=== PATIENT | female | born 1960 | race Caucasian/White ===

== ENCOUNTER 2017-04-18 10:55 | Emergency (ER) | payer MEDICARE, MEDICAID ==
[~2017-04-18] VITALS: Ht 170.2 cm; Wt 81.8 kg
[~2017-04-18 10:55] MED LIST: IBUP1CAP11 PO; OMEP20CA4 PO; OMEP40CA37 PO; ONDA4TAB12 PO; ONDA4TAB6 PO; OXYC-145 PO; PROC5TAB56 PO; RANI150T12 PO; SUCR1ORA2 PO
[2017-04-18] MEDS ORDERED: ondansetron/PF 4mg/2ml inj IV ONE ×2 (11:10)
[2017-04-18] MEDS ORDERED: normal saline 1000ML IV soln IVB ONE (11:10)
[2017-04-18 11:45] LABS: BASOPHILS % (AUTO) 0.3 % (0-1); EOSINOPHILS # (AUTO) 0.2 X10'3 (0-0.9); EOSINOPHILS % (AUTO) 3.3 % (0-6); HEMATOCRIT 42.4 % (35.0-45.0); HEMOGLOBIN 14.4 g/dl (12.0-16.0); LYMPHOCYTES # (AUTO) 1.6 X10'3 (1.1-4.8); LYMPHOCYTES % (AUTO) 22.3 % (21-51); MEAN CORPUSCULAR HEMOGLOBIN 30.8 PG (27.0-31.0); MEAN CORPUSCULAR HGB CONC 33.9 % (33.0-36.5); MEAN CORPUSCULAR VOLUME 90.8 FL (78-98); MEAN PLATELET VOLUME 8.1 FL (7.4-10.4); MONOCYTES # (AUTO) 0.6 X10'3 (0-0.9); MONOCYTES % (AUTO) 7.9 % (2-12); NEUTROPHILS # (AUTO) 4.7 X10'3 (1.8-7.7); NEUTROPHILS % (AUTO) 66.2 % (42-75); PLATELET COUNT 200 X10'3 (140-440); RED BLOOD COUNT 4.67 X10'6 (4.20-5.60); RED CELL DISTRIBUTION WIDTH 13.7 % (11.5-14.5); WHITE BLOOD COUNT 7.1 X10'3 (4.5-11.0)
[2017-04-18 11:52] LABS: CLARITY,URINE Clear (Clear); COLOR,URINE Yellow (Yellow); GLUCOSE, URINE Negative (Neg); KETONES,URINE Negative (Neg); LEUKOCYTE ESTERASE ,URINE Trace (Neg); NITRITES, URINE Negative (Neg); OCCULT BLOOD,URINE Negative (Neg); PH,URINE 5.5 (4.8-8.0); PROTEIN,URINE Negative (Neg); UROBILINOGEN,URINE 0.2 E.U/dL (0.2-1.0)
[2017-04-18 12:00] LABS: URINE AMPHETAMINE SCREEN NEGATIVE (Neg); URINE BARBITUATE SCREEN NEGATIVE (Neg); URINE BENZODIAZEPINES SCREEN NEGATIVE (Neg); URINE CANNABINOID SCREEN POSITIVE (Neg); URINE COCAINE SCREEN NEGATIVE (Neg); URINE METHADONE SCREEN NEGATIVE (Neg); URINE OPIATE SCREEN NEGATIVE (Neg); URINE PHENCYCLIDINE SCREEN NEGATIVE (Neg)
[2017-04-18 12:01] LABS: ALANINE AMINOTRANSFERASE 55 U/L (12-78); ALBUMIN 3.7 G/DL (3.4-5.0); ALBUMIN/GLOBULIN RATIO 0.8 (1.1-1.5); ALKALINE PHOSPHATASE 124 IU/L (46-116); ANION GAP 9 (8-16); ASPARTATE AMINO TRANSFERASE 56 U/L (10-37); BILIRUBIN,TOTAL 0.7 MG/DL (0.1-1.0); BLOOD UREA NITROGEN 15 MG/DL (7-18); BUN/CREATININE RATIO 18.8 (6.6-38.0); CHLORIDE 104 MMOL/L (99-107); CHOL/HDL RATIO 2.4 (0.00-4.99); CHOLESTEROL 209 MG/DL (0-200); ETHANOL < 0.010 GM/DL (0.0-0.010); GLUCOSE 109 MG/DL (70-104); HDL CHOLESTEROL 86 MG/DL (35-60); LDL CHOLESTEROL 119 MG/DL (50-100); LIPASE 134 U/L (73-393); POTASSIUM 4.2 MMOL/L (3.5-5.1); SODIUM 137 MMOL/L (135-145); TOTAL CARBON DIOXIDE 24.3 MMOL/L (24-32); TOTAL PROTEIN 8.1 G/DL (6.4-8.2); TRIGLYCERIDES 70 MG/DL (20-135); eGFR 74 ML/MIN
[2017-04-18 12:02] LABS: UA COLLECTION TYPE CLN CATCH MIDSTREAM
[2017-04-18 12:03] LABS: BACTERIA,URINE 1+ /HPF (Neg); MUCUS STRANDS FEW /LPF (Neg); RBC,URINE NONE SEEN /HPF (0-2); SQUAMOUS EPITHELIAL CELL,UR FEW /LPF (FEW); WBC,URINE 0-4 /HPF (0-4)
[2017-04-18 12:04] LABS: TRANSITIONAL EPI CELLS,URINE FEW /HPF
[2017-04-18 12:47] VITALS: BP 170/50
== END 2017-04-18 12:49 | disposition home or self-care (01) ==
LOC: ER 10:56
DX: K52.9 Noninfective gastroenteritis and colitis, unspecified (principal); G89.29 Other chronic pain; Z90.49 Acquired absence of other specified parts of digestive tract; Z79.899 Other long term (current) drug therapy; Z88.8 Allergy status to other drugs, medicaments and biological substances
CPT/HCPCS: 36415; 74176; 80053; 80061; 80305; 80320; 81001; 83690; 85025; 87077; 87088; 87186; 96361; 96374; 96375; 99285; J2270; J2405; J7030

== ENCOUNTER 2017-04-18 14:42 | Emergency (ER) | payer MEDICARE, MEDICAID ==
[~2017-04-18] VITALS: Ht 170.2 cm; Wt 85.3 kg
[2017-04-18 15:41] VITALS: BP 124/85
== END 2017-04-18 19:32 | disposition left against medical advice (07) ==
LOC: ER 14:42
DX: R10.12 Left upper quadrant pain (principal); R11.2 Nausea with vomiting, unspecified; R19.7 Diarrhea, unspecified; Z53.21 Procedure and treatment not carried out due to patient leaving prior to being seen by health care provider
CPT/HCPCS: J7030

== ENCOUNTER 2017-07-04 12:20 | Emergency (ER) | payer MEDICARE, MEDICAID ==
[~2017-07-04] VITALS: Ht 162.6 cm; Wt 81.8 kg
[2017-07-04 12:48] LABS: CLARITY,URINE CLEAR (Clear); COLOR,URINE YELLOW (Yellow); GLUCOSE, URINE NEGATIVE (Neg); KETONES,URINE NEGATIVE (Neg); LEUKOCYTE ESTERASE ,URINE TRACE (Neg); NITRITES, URINE NEGATIVE (Neg); OCCULT BLOOD,URINE NEGATIVE (Neg); PROTEIN,URINE NEGATIVE (Neg); UROBILINOGEN,URINE 0.2 E.U/dL (0.2-1.0)
[2017-07-04 12:48] LABS: BASOPHILS % (AUTO) 0.3 % (0-1); EOSINOPHILS # (AUTO) 0.2 X10'3 (0-0.9); EOSINOPHILS % (AUTO) 1.9 % (0-6); HEMATOCRIT 42.4 % (35.0-45.0); HEMOGLOBIN 14.5 g/dl (12.0-16.0); LYMPHOCYTES # (AUTO) 2.2 X10'3 (1.1-4.8); LYMPHOCYTES % (AUTO) 20.8 % (21-51); MEAN CORPUSCULAR HEMOGLOBIN 31.3 PG (27.0-31.0); MEAN CORPUSCULAR HGB CONC 34.2 % (33.0-36.5); MEAN CORPUSCULAR VOLUME 91.7 FL (78-98); MEAN PLATELET VOLUME 9.9 FL (7.4-10.4); MONOCYTES # (AUTO) 0.8 X10'3 (0-0.9); MONOCYTES % (AUTO) 7.5 % (2-12); NEUTROPHILS # (AUTO) 7.3 X10'3 (1.8-7.7); NEUTROPHILS % (AUTO) 69.5 % (42-75); PLATELET COUNT 192 X10'3 (140-440); RED BLOOD COUNT 4.63 X10'6 (4.20-5.60); RED CELL DISTRIBUTION WIDTH 13.5 % (11.5-14.5); WHITE BLOOD COUNT 10.4 X10'3 (4.5-11.0)
[2017-07-04 13:00] LABS: UA COLLECTION TYPE CLN CATCH MIDSTREAM
[2017-07-04 13:01] LABS: BACTERIA,URINE FEW /HPF (Neg); MUCUS STRANDS NONE SEEN /LPF (Neg); RBC,URINE NONE SEEN /HPF (0-2); SQUAMOUS EPITHELIAL CELL,UR FEW /LPF (FEW); WBC,URINE 0-4 /HPF (0-4)
[2017-07-04 13:02] LABS: URINE AMPHETAMINE SCREEN NEGATIVE (Neg); URINE BARBITUATE SCREEN NEGATIVE (Neg); URINE BENZODIAZEPINES SCREEN NEGATIVE (Neg); URINE CANNABINOID SCREEN POSITIVE (Neg); URINE COCAINE SCREEN NEGATIVE (Neg); URINE METHADONE SCREEN NEGATIVE (Neg); URINE OPIATE SCREEN NEGATIVE (Neg); URINE PHENCYCLIDINE SCREEN NEGATIVE (Neg)
[2017-07-04 13:11] LABS: ALANINE AMINOTRANSFERASE 86 U/L (12-78); ALBUMIN 3.7 G/DL (3.4-5.0); ALBUMIN/GLOBULIN RATIO 0.9 (1.1-1.5); ALKALINE PHOSPHATASE 77 IU/L (46-116); ANION GAP 14 (8-16); ASPARTATE AMINO TRANSFERASE 43 U/L (10-37); BILIRUBIN,TOTAL 0.7 MG/DL (0.1-1.0); BLOOD UREA NITROGEN 13 MG/DL (7-18); BUN/CREATININE RATIO 15.1 (6.6-38.0); CALCIUM 8.6 MG/DL (8.5-10.1); CHLORIDE 100 MMOL/L (99-107); CREATININE 0.86 MG/DL (0.40-0.90); ETHANOL < 0.010 GM/DL (0.0-0.010); GLUCOSE 109 MG/DL (70-104); POTASSIUM 3.2 MMOL/L (3.5-5.1); SODIUM 136 MMOL/L (135-145); TOTAL CARBON DIOXIDE 21.7 MMOL/L (24-32); TOTAL PROTEIN 7.8 G/DL (6.4-8.2); eGFR 68 ML/MIN
[2017-07-04] MEDS ORDERED: PALI6TAB PO (13:17)
[2017-07-04] MEDS ORDERED: SOMINEX (13:17)
[2017-07-04] MEDS ORDERED: PROP10TA10 PO (13:17)
[2017-07-04] MEDS ORDERED: OMEP20TA5 PO (13:17)
[2017-07-04] MEDS ORDERED: LORA1TAB PO (13:17)
[2017-07-04] MEDS ORDERED: LAMO100T65 PO (13:17)
[2017-07-04] MEDS ORDERED: LURA20TA PO (13:17)
[2017-07-04] MEDS ORDERED: NORT25CA PO (13:17)
[2017-07-04] MEDS ORDERED: SOMINEX PO (13:17)
[2017-07-04] MEDS ORDERED: potassium Cl 20 mEq SR tablet PO STA (13:50)
[2017-07-04] MEDS ORDERED: PROP40TA72 PO (14:00)
[2017-07-04] MEDS ORDERED: DIPH25CA6 PO (14:04)
[2017-07-04 17:35] LABS: URINE HCG NEGATIVE (NEG)
[2017-07-04] MEDS: lurasidone 20mg tablet PO SCH (21:17)
[2017-07-04] MEDS: pantoprazole 40mg Tablet.DR PO SCH (21:17)
[2017-07-04] MEDS: PALIPERIDONE 3 MG TAB.ER.24 PO SCH (21:17)
[2017-07-04] MEDS: lamoTRIgine 100mg tablet PO SCH (21:17)
[2017-07-04] MEDS: propranolol 10mg tablet PO SCH (21:17)
[2017-07-04] MEDS: LORazepam 1 MG tablet PO PRN (21:18)
[2017-07-04] MEDS: diphenhydrAMINE 25mg capsule PO SCH (21:18)
[2017-07-04] MEDS: ibuprofen 200mg tablet PO PRN (21:18)
[2017-07-05] MEDS ORDERED: acetaminophen 325mg tablet PO ONE (07:50)
[2017-07-05] MEDS ORDERED: lurasidone 20mg tablet PO SCH (08:00)
[2017-07-05] MEDS: propranolol 10mg tablet PO SCH ×2 (08:28→20:17)
[2017-07-05] MEDS: pantoprazole 40mg Tablet.DR PO SCH ×2 (08:28→20:18)
[2017-07-05] MEDS ORDERED: tuberculin, purif. prot. deriv. 5 units/0.1ml ID ONE (11:10)
[2017-07-05] MEDS: nortriptyline 25mg capsule PO SCH (11:19)
[2017-07-05] MEDS: PALIPERIDONE 3 MG TAB.ER.24 PO SCH (20:17)
[2017-07-05] MEDS: diphenhydrAMINE 25mg capsule PO SCH (20:17)
[2017-07-05] MEDS: lurasidone 20mg tablet PO SCH (20:17)
[2017-07-05] MEDS: lamoTRIgine 100mg tablet PO SCH (20:17)
[2017-07-05] MEDS: LORazepam 1 MG tablet PO PRN (20:18)
[2017-07-06] MEDS: propranolol 10mg tablet PO SCH ×2 (08:46→20:22)
[2017-07-06] MEDS: nortriptyline 25mg capsule PO SCH (08:46)
[2017-07-06] MEDS: pantoprazole 40mg Tablet.DR PO SCH ×2 (08:46→20:09)
[2017-07-06] MEDS: LORazepam 1 MG tablet PO PRN ×2 (10:04→20:08)
[2017-07-06] MEDS ORDERED: LORazepam 1 MG tablet PO ONE (15:35)
[2017-07-06] MEDS: ibuprofen 200mg tablet PO PRN (20:07)
[2017-07-06] MEDS: PALIPERIDONE 3 MG TAB.ER.24 PO SCH (20:07)
[2017-07-06] MEDS: diphenhydrAMINE 25mg capsule PO SCH (20:08)
[2017-07-06] MEDS: lamoTRIgine 100mg tablet PO SCH (20:08)
[2017-07-06] MEDS: lurasidone 20mg tablet PO SCH (20:08)
[2017-07-06] MEDS ORDERED: benztropine 1 mg/ml 2ml ampule IM STA (20:16)
[2017-07-07] MEDS ORDERED: traZODone 50mg tablet PO ONE (01:05)
[2017-07-07 06:05] VITALS: BP 100/56
[2017-07-07] MEDS: propranolol 10mg tablet PO SCH (07:35)
[2017-07-07] MEDS: pantoprazole 40mg Tablet.DR PO SCH (07:35)
[2017-07-07] MEDS: nortriptyline 25mg capsule PO SCH (07:39)
[2017-07-07] MEDS ORDERED: benztropine 1mg tablet PO SCH (08:00)
== END 2017-07-07 15:00 | disposition home or self-care (01) ==
LOC: ER 12:20
DX: R45.851 Suicidal ideations (principal); E87.6 Hypokalemia; F12.10 Cannabis abuse, uncomplicated; F25.9 Schizoaffective disorder, unspecified; G89.29 Other chronic pain; F31.9 Bipolar disorder, unspecified; F20.9 Schizophrenia, unspecified; Z90.49 Acquired absence of other specified parts of digestive tract; Z88.8 Allergy status to other drugs, medicaments and biological substances; Z79.899 Other long term (current) drug therapy
CPT/HCPCS: 36415; 80053; 80305; 80320; 81001; 81025; 84443; 85025; 87088; 96372; 99284; J0515; Q0163

== ENCOUNTER 2017-07-07 11:58 | Inpatient (IN) | payer MEDICARE, MEDICAID ==
[~2017-07-07] VITALS: Ht 170.2 cm; Wt 82.2 kg
[~2017-07-07 11:58] MED LIST changes: +DIPH25CA6 PO; +LAMO100T65 PO; +LORA1TAB PO; +LURA20TA PO; +NORT25CA PO; -OMEP20CA4 PO; +OMEP20TA5 PO; -OMEP40CA37 PO; -ONDA4TAB12 PO; -ONDA4TAB6 PO; -OXYC-145 PO; +PALI6TAB PO; -PROC5TAB56 PO; +PROP40TA72 PO; -RANI150T12 PO; -SUCR1ORA2 PO
[2017-07-07] MEDS: LORazepam 1 MG tablet PO PRN (15:38)
[2017-07-07] MEDS: nicotine prolacrilex 2mg gum BC PRN ×2 (15:43→20:19)
[2017-07-07 19:21] VITALS: BP 107/67
[2017-07-07] MEDS: propranolol 10mg tablet PO SCH (20:10)
[2017-07-07] MEDS: diphenhydrAMINE 25mg capsule PO SCH (20:11)
[2017-07-07] MEDS: PALIPERIDONE PO SCH (20:11)
[2017-07-07] MEDS: diphenhydrAMINE 25mg capsule PO PRN (20:19)
[2017-07-07] MEDS: [UNRECOGNIZED DRUG - REMARK] PO SCH (20:40)
[2017-07-07] MEDS ORDERED: lamoTRIgine 100mg tablet PO SCH (21:00)
[2017-07-08 07:04] LABS: CHOL/HDL RATIO 3.1 (0.00-4.99); CHOLESTEROL 162 MG/DL (0-200); HDL CHOLESTEROL 52 MG/DL (35-60); LDL CHOLESTEROL 93 MG/DL (50-100); TRIGLYCERIDES 71 MG/DL (20-135)
[2017-07-08 07:08] LABS: HEMOGLOBIN A1C 5.3 % (4.5-6.2)
[2017-07-08] MEDS: nicotine prolacrilex 2mg gum BC PRN (07:13)
[2017-07-08] MEDS: pantoprazole 40mg Tablet.DR PO SCH (07:13)
[2017-07-08 08:00] VITALS: BP 107/66
[2017-07-08] MEDS: lurasidone 20mg tablet PO SCH (08:15)
[2017-07-08] MEDS: nortriptyline 25mg capsule PO SCH (08:15)
[2017-07-08] MEDS: propranolol 10mg tablet PO SCH ×2 (08:15→21:40)
[2017-07-08] MEDS: LORazepam 1 MG tablet PO PRN ×2 (10:07→21:41)
[2017-07-08 19:32] VITALS: BP 103/61
[2017-07-08] MEDS: [UNRECOGNIZED DRUG - REMARK] PO SCH (21:00)
[2017-07-08] MEDS: PALIPERIDONE PO SCH (21:40)
[2017-07-08] MEDS: lamoTRIgine 100mg tablet PO SCH (21:40)
[2017-07-08] MEDS: diphenhydrAMINE 25mg capsule PO SCH (21:41)
[2017-07-09] MEDS: pantoprazole 40mg Tablet.DR PO SCH (07:51)
[2017-07-09] MEDS: lurasidone 20mg tablet PO SCH (07:52)
[2017-07-09] MEDS: propranolol 10mg tablet PO SCH ×2 (07:54→20:07)
[2017-07-09] MEDS: nortriptyline 25mg capsule PO SCH (07:55)
[2017-07-09 08:00] VITALS: BP 91/47
[2017-07-09] MEDS: nicotine prolacrilex 2mg gum BC PRN ×3 (10:00→19:19)
[2017-07-09] MEDS: LORazepam 1 MG tablet PO PRN ×2 (10:00→22:19)
[2017-07-09] MEDS: ibuprofen 200mg tablet PO PRN ×2 (10:15→20:08)
[2017-07-09 19:42] VITALS: BP 118/79
[2017-07-09] MEDS: [UNRECOGNIZED DRUG - REMARK] PO SCH (21:00)
[2017-07-09] MEDS: lamoTRIgine 100mg tablet PO SCH (21:04)
[2017-07-09] MEDS: PALIPERIDONE PO SCH (21:04)
[2017-07-09] MEDS: diphenhydrAMINE 25mg capsule PO SCH (21:04)
[2017-07-10] MEDS: pantoprazole 40mg Tablet.DR PO SCH (07:25)
[2017-07-10] MEDS: nicotine prolacrilex 2mg gum BC PRN ×5 (07:32→17:35)
[2017-07-10] MEDS: propranolol 10mg tablet PO SCH ×2 (08:27→20:11)
[2017-07-10] MEDS: lurasidone 20mg tablet PO SCH (08:27)
[2017-07-10] MEDS: nortriptyline 25mg capsule PO SCH (08:27)
[2017-07-10 08:55] VITALS: BP 116/62
[2017-07-10] MEDS ORDERED: mag hydrox/Alum hydrox/simeth 30ml oral suspension PO PRN (09:05)
[2017-07-10] MEDS ORDERED: magnesium hydroxide 30ml (MOM) UD suspension PO PRN (09:05)
[2017-07-10] MEDS: acetaminophen 325mg tablet PO PRN ×2 (09:13→17:35)
[2017-07-10] MEDS: LORazepam 1 MG tablet PO PRN (10:41)
[2017-07-10] MEDS ORDERED: duloxetine 30mg CAPSULE.DR PO ONE (13:05)
[2017-07-10 19:52] VITALS: BP 109/64
[2017-07-10] MEDS: diphenhydrAMINE 25mg capsule PO SCH (20:11)
[2017-07-10] MEDS: lamoTRIgine 100mg tablet PO SCH (20:11)
[2017-07-10] MEDS: INVEGA 6 MG PO SCH (20:12)
[2017-07-10] MEDS: ibuprofen 200mg tablet PO PRN (20:13)
[2017-07-11] MEDS: LORazepam 1 MG tablet PO PRN ×2 (02:34→14:23)
[2017-07-11] MEDS: pantoprazole 40mg Tablet.DR PO SCH (07:40)
[2017-07-11 08:00] VITALS: BP 112/58
[2017-07-11] MEDS: duloxetine 30mg CAPSULE.DR PO SCH (08:28)
[2017-07-11] MEDS: propranolol 10mg tablet PO SCH ×2 (08:28→20:27)
[2017-07-11] MEDS: lurasidone 20mg tablet PO SCH (08:49)
[2017-07-11] MEDS: nicotine prolacrilex 2mg gum BC PRN (08:59)
[2017-07-11] MEDS ORDERED: tuberculin, purif. prot. deriv. 5 units/0.1ml ID ONE (12:40)
[2017-07-11] MEDS: acetaminophen 325mg tablet PO PRN (17:11)
[2017-07-11] MEDS: ondansetron 4mg rapidly disintigrating tab PO PRN (17:37)
[2017-07-11 18:59] LABS: BASOPHILS % (AUTO) 0.6 % (0-1); EOSINOPHILS # (AUTO) 0.3 X10'3 (0-0.9); EOSINOPHILS % (AUTO) 3.7 % (0-6); HEMATOCRIT 38.5 % (35.0-45.0); HEMOGLOBIN 13.2 g/dl (12.0-16.0); LYMPHOCYTES # (AUTO) 2.9 X10'3 (1.1-4.8); LYMPHOCYTES % (AUTO) 36.5 % (21-51); MEAN CORPUSCULAR HEMOGLOBIN 31.4 PG (27.0-31.0); MEAN CORPUSCULAR HGB CONC 34.2 % (33.0-36.5); MEAN CORPUSCULAR VOLUME 91.9 FL (78-98); MEAN PLATELET VOLUME 9.8 FL (7.4-10.4); MONOCYTES % (AUTO) 12.7 % (2-12); NEUTROPHILS # (AUTO) 3.7 X10'3 (1.8-7.7); NEUTROPHILS % (AUTO) 46.5 % (42-75); PLATELET COUNT 189 X10'3 (140-440); RED BLOOD COUNT 4.19 X10'6 (4.20-5.60); RED CELL DISTRIBUTION WIDTH 13.1 % (11.5-14.5); WHITE BLOOD COUNT 7.9 X10'3 (4.5-11.0)
[2017-07-11 19:00] VITALS: BP 108/59
[2017-07-11 19:25] LABS: ALANINE AMINOTRANSFERASE 48 U/L (12-78); ALBUMIN 3.2 G/DL (3.4-5.0); ALBUMIN/GLOBULIN RATIO 0.9 (1.1-1.5); ALKALINE PHOSPHATASE 79 IU/L (46-116); ANION GAP 7 (8-16); ASPARTATE AMINO TRANSFERASE 26 U/L (10-37); BILIRUBIN,TOTAL 0.2 MG/DL (0.1-1.0); BLOOD UREA NITROGEN 18 MG/DL (7-18); BUN/CREATININE RATIO 13.2 (6.6-38.0); CHLORIDE 105 MMOL/L (99-107); CREATININE 1.36 MG/DL (0.40-0.90); GLUCOSE 108 MG/DL (70-104); POTASSIUM 4.2 MMOL/L (3.5-5.1); SODIUM 139 MMOL/L (135-145); TOTAL CARBON DIOXIDE 26.7 MMOL/L (24-32); TOTAL PROTEIN 6.9 G/DL (6.4-8.2); eGFR 40 ML/MIN
[2017-07-11 19:26] LABS: CALCIUM 8.8 MG/DL (8.5-10.1)
[2017-07-11] MEDS: diphenhydrAMINE 25mg capsule PO SCH (20:26)
[2017-07-11] MEDS: INVEGA 6 MG PO SCH (20:26)
[2017-07-11] MEDS: lamoTRIgine 100mg tablet PO SCH (20:26)
[2017-07-12] MEDS: diphenhydrAMINE 25mg capsule PO PRN ×2 (02:34→20:59)
[2017-07-12] MEDS: pantoprazole 40mg Tablet.DR PO SCH (07:47)
[2017-07-12] MEDS: nicotine prolacrilex 2mg gum BC PRN (07:50)
[2017-07-12 08:00] VITALS: BP 88/46
[2017-07-12] MEDS: propranolol 10mg tablet PO SCH ×2 (08:00→20:00)
[2017-07-12 08:10] VITALS: BP 90/52
[2017-07-12] MEDS: duloxetine 30mg CAPSULE.DR PO SCH (08:33)
[2017-07-12] MEDS: LORazepam 1 MG tablet PO PRN ×2 (08:33→20:59)
[2017-07-12] MEDS: lurasidone 20mg tablet PO SCH (08:50)
[2017-07-12] MEDS ORDERED: benztropine 1mg tablet PO ONE (17:50)
[2017-07-12 20:00] VITALS: BP 95/56
[2017-07-12] MEDS: INVEGA 6 MG PO SCH (20:16)
[2017-07-12] MEDS: diphenhydrAMINE 25mg capsule PO SCH (20:16)
[2017-07-12] MEDS: lamoTRIgine 100mg tablet PO SCH (20:17)
[2017-07-13 07:12] VITALS: BP 116/65
[2017-07-13] MEDS: pantoprazole 40mg Tablet.DR PO SCH (07:45)
[2017-07-13] MEDS: lurasidone 20mg tablet PO SCH (07:45)
[2017-07-13] MEDS: propranolol 10mg tablet PO SCH ×2 (07:45→20:23)
[2017-07-13] MEDS: nicotine prolacrilex 2mg gum BC PRN ×2 (08:37→14:11)
[2017-07-13] MEDS: ondansetron 4mg rapidly disintigrating tab PO PRN (10:06)
[2017-07-13] MEDS: acetaminophen 325mg tablet PO PRN (14:30)
[2017-07-13] MEDS ORDERED: lurasidone 20mg tablet PO SCH (18:00)
[2017-07-13 19:04] VITALS: BP 105/57
[2017-07-13] MEDS: LORazepam 1 MG tablet PO PRN (20:21)
[2017-07-13] MEDS: diphenhydrAMINE 25mg capsule PO SCH (20:21)
[2017-07-13] MEDS: lamoTRIgine 100mg tablet PO SCH (20:21)
[2017-07-13] MEDS: INVEGA 6 MG PO SCH (20:24)
[2017-07-14] MEDS: diphenhydrAMINE 25mg capsule PO PRN (03:06)
[2017-07-14] MEDS: propranolol 10mg tablet PO SCH ×2 (07:43→20:42)
[2017-07-14] MEDS: pantoprazole 40mg Tablet.DR PO SCH (07:43)
[2017-07-14 08:00] VITALS: BP 97/72
[2017-07-14] MEDS: nicotine prolacrilex 2mg gum BC PRN (08:38)
[2017-07-14] MEDS: LORazepam 1 MG tablet PO PRN ×2 (08:38→18:38)
[2017-07-14] MEDS: acetaminophen 325mg tablet PO PRN (15:58)
[2017-07-14 16:21] LABS: BASOPHILS # (AUTO) 0.1 X10'3 (0-0.2); BASOPHILS % (AUTO) 0.7 % (0-1); EOSINOPHILS # (AUTO) 0.3 X10'3 (0-0.9); EOSINOPHILS % (AUTO) 3.2 % (0-6); HEMATOCRIT 39.4 % (35.0-45.0); HEMOGLOBIN 13.5 g/dl (12.0-16.0); LYMPHOCYTES # (AUTO) 2.8 X10'3 (1.1-4.8); LYMPHOCYTES % (AUTO) 30.2 % (21-51); MEAN CORPUSCULAR HEMOGLOBIN 31.3 PG (27.0-31.0); MEAN CORPUSCULAR HGB CONC 34.3 % (33.0-36.5); MEAN CORPUSCULAR VOLUME 91.2 FL (78-98); MEAN PLATELET VOLUME 9.4 FL (7.4-10.4); MONOCYTES # (AUTO) 1.2 X10'3 (0-0.9); MONOCYTES % (AUTO) 13.1 % (2-12); NEUTROPHILS # (AUTO) 4.8 X10'3 (1.8-7.7); NEUTROPHILS % (AUTO) 52.8 % (42-75); PLATELET COUNT 194 X10'3 (140-440); RED BLOOD COUNT 4.32 X10'6 (4.20-5.60); RED CELL DISTRIBUTION WIDTH 13.3 % (11.5-14.5); WHITE BLOOD COUNT 9.1 X10'3 (4.5-11.0)
[2017-07-14 16:37] LABS: ALANINE AMINOTRANSFERASE 51 U/L (12-78); ALBUMIN 3.3 G/DL (3.4-5.0); ALBUMIN/GLOBULIN RATIO 0.8 (1.1-1.5); ALKALINE PHOSPHATASE 83 IU/L (46-116); ANION GAP 6 (8-16); ASPARTATE AMINO TRANSFERASE 26 U/L (10-37); BILIRUBIN,TOTAL 0.3 MG/DL (0.1-1.0); BLOOD UREA NITROGEN 16 MG/DL (7-18); BUN/CREATININE RATIO 14.4 (6.6-38.0); CALCIUM 8.8 MG/DL (8.5-10.1); CHLORIDE 106 MMOL/L (99-107); CREATININE 1.11 MG/DL (0.40-0.90); GLUCOSE 99 MG/DL (70-104); POTASSIUM 3.9 MMOL/L (3.5-5.1); SODIUM 140 MMOL/L (135-145); TOTAL CARBON DIOXIDE 27.8 MMOL/L (24-32); TOTAL PROTEIN 7.2 G/DL (6.4-8.2); eGFR 51 ML/MIN
[2017-07-14] MEDS: lurasidone 60mg tablet PO SCH (18:39)
[2017-07-14] MEDS: ondansetron 4mg rapidly disintigrating tab PO PRN (18:58)
[2017-07-14 19:39] VITALS: BP 114/63
[2017-07-14] MEDS: lamoTRIgine 100mg tablet PO SCH (20:42)
[2017-07-14] MEDS: diphenhydrAMINE 25mg capsule PO SCH (20:42)
[2017-07-14] MEDS ORDERED: PALIPERIDONE PO SCH (21:00)
[2017-07-15] MEDS: acetaminophen 325mg tablet PO PRN ×2 (05:34→16:43)
[2017-07-15] MEDS: pantoprazole 40mg Tablet.DR PO SCH (07:30)
[2017-07-15 08:00] VITALS: BP 106/62
[2017-07-15] MEDS: propranolol 10mg tablet PO SCH ×2 (08:00→19:16)
[2017-07-15] MEDS: LORazepam 1 MG tablet PO PRN ×2 (09:19→21:24)
[2017-07-15] MEDS: nicotine prolacrilex 2mg gum BC PRN ×2 (10:23→16:26)
[2017-07-15] MEDS: lurasidone 60mg tablet PO SCH (18:00)
[2017-07-15] MEDS: ondansetron 4mg rapidly disintigrating tab PO PRN (19:17)
[2017-07-15 19:34] VITALS: BP 111/64
[2017-07-15] MEDS ORDERED: PALIPERIDONE PO SCH (21:00)
[2017-07-15] MEDS: diphenhydrAMINE 25mg capsule PO SCH (21:23)
[2017-07-15] MEDS: lamoTRIgine 100mg tablet PO SCH (21:24)
[2017-07-16] MEDS: ondansetron 4mg rapidly disintigrating tab PO PRN ×2 (00:57→08:18)
[2017-07-16] MEDS: pantoprazole 40mg Tablet.DR PO SCH (07:27)
[2017-07-16 08:00] VITALS: BP 101/51
[2017-07-16 08:03] VITALS: BP 121/64
[2017-07-16] MEDS: propranolol 10mg tablet PO SCH ×2 (08:07→20:12)
[2017-07-16] MEDS: acetaminophen 325mg tablet PO PRN ×3 (08:57→20:31)
[2017-07-16] MEDS: LORazepam 1 MG tablet PO PRN (10:37)
[2017-07-16] MEDS: nicotine prolacrilex 2mg gum BC PRN ×2 (16:14→20:30)
[2017-07-16] MEDS: lurasidone 60mg tablet PO SCH (18:51)
[2017-07-16] MEDS: ibuprofen 200mg tablet PO PRN (18:51)
[2017-07-16 19:40] VITALS: BP 103/58
[2017-07-16] MEDS: lamoTRIgine 100mg tablet PO SCH (20:13)
[2017-07-16] MEDS: diphenhydrAMINE 25mg capsule PO SCH (20:13)
[2017-07-16] MEDS ORDERED: INVEGA 6 MG PO SCH (21:00)
[2017-07-16] MEDS ORDERED: PALIPERIDONE 6 MG PO SCH (21:00)
[2017-07-16] MEDS ORDERED: INVEGA 3 MG PO SCH (21:00)
[2017-07-16] MEDS ORDERED: PALIPERIDONE 3 MG TAB.ER.24 PO SCH (21:00)
[2017-07-17] MEDS: diphenhydrAMINE 25mg capsule PO PRN (01:31)
[2017-07-17] MEDS: LORazepam 1 MG tablet PO PRN ×2 (01:31→12:16)
[2017-07-17] MEDS: pantoprazole 40mg Tablet.DR PO SCH (07:19)
[2017-07-17] MEDS: propranolol 10mg tablet PO SCH (07:38)
[2017-07-17 08:15] VITALS: BP 88/62
[2017-07-17] MEDS: ondansetron 4mg rapidly disintigrating tab PO PRN (09:48)
[2017-07-17] MEDS ORDERED: LORA0.5T PO (10:44)
[2017-07-17] MEDS ORDERED: PALI3TAB5 PO (10:44)
[2017-07-17] MEDS ORDERED: LURA120T PO (10:44)
[2017-07-17] MEDS ORDERED: PANT40TA4 PO (10:44)
[2017-07-17] MEDS ORDERED: PROP20TA6 PO (10:44)
[2017-07-17] MEDS ORDERED: LAMO25TA72 PO (10:44)
[2017-07-17] MEDS ORDERED: NICO2GUM29 BC (10:44)
[2017-07-17] MEDS: ibuprofen 200mg tablet PO PRN (11:14)
[2017-07-17] MEDS: acetaminophen 325mg tablet PO PRN (11:14)
== END 2017-07-17 14:30 | disposition home or self-care (01) | DRG 885 ==
LOC: ADULT MH 11:58
PROVIDERS: ADMIT Psychiatry & Neurology Psychiatry; ATTEND Psychiatry & Neurology Psychiatry
DX: F33.9 Major depressive disorder, recurrent, unspecified (principal); R45.851 Suicidal ideations; F25.0 Schizoaffective disorder, bipolar type; F10.10 Alcohol abuse, uncomplicated; F12.90 Cannabis use, unspecified, uncomplicated; F41.9 Anxiety disorder, unspecified; F29 Unspecified psychosis not due to a substance or known physiological condition; F17.200 Nicotine dependence, unspecified, uncomplicated; Z90.49 Acquired absence of other specified parts of digestive tract; Z88.8 Allergy status to other drugs, medicaments and biological substances; Z80.9 Family history of malignant neoplasm, unspecified; Z82.3 Family history of stroke
CPT/HCPCS: 36415; 71045; 80053; 80061; 83036; 85025; 87070; Q0163

== ENCOUNTER 2017-09-08 11:18 | Emergency (ER) | payer MEDICARE, MEDICAID ==
[~2017-09-08] VITALS: Ht 170.2 cm; Wt 82.0 kg
[~2017-09-08 11:18] MED LIST changes: -DIPH25CA6 PO; -IBUP1CAP11 PO; -LAMO100T65 PO; +LAMO25TA72 PO; +LORA0.5T PO; -LORA1TAB PO; +LURA120T PO; -LURA20TA PO; +NICO2GUM29 BC; -NORT25CA PO; -OMEP20TA5 PO; +PALI3TAB5 PO; -PALI6TAB PO; +PANT40TA4 PO; +PROP20TA6 PO; -PROP40TA72 PO
[2017-09-08 11:56] LABS: BASOPHILS # (AUTO) 0.1 X10'3 (0-0.2); BASOPHILS % (AUTO) 0.6 % (0-1); EOSINOPHILS # (AUTO) 0.3 X10'3 (0-0.9); EOSINOPHILS % (AUTO) 2.9 % (0-6); HEMATOCRIT 44.3 % (35.0-45.0); HEMOGLOBIN 15.1 g/dl (12.0-16.0); LYMPHOCYTES # (AUTO) 4.5 X10'3 (1.1-4.8); LYMPHOCYTES % (AUTO) 43.4 % (21-51); MEAN CORPUSCULAR HGB CONC 34.2 % (33.0-36.5); MEAN CORPUSCULAR VOLUME 90.8 FL (78-98); MEAN PLATELET VOLUME 8.9 FL (7.4-10.4); MONOCYTES # (AUTO) 0.5 X10'3 (0-0.9); MONOCYTES % (AUTO) 4.9 % (2-12); NEUTROPHILS % (AUTO) 48.2 % (42-75); PLATELET COUNT 282 X10'3 (140-440); RED BLOOD COUNT 4.88 X10'6 (4.20-5.60); RED CELL DISTRIBUTION WIDTH 13.8 % (11.5-14.5); WHITE BLOOD COUNT 10.3 X10'3 (4.5-11.0)
[2017-09-08 11:57] LABS: URINE HCG NEGATIVE (NEG)
[2017-09-08 12:06] LABS: CLARITY,URINE SLIGHTLY CLOUDY (Clear); COLOR,URINE STRAW (Yellow); GLUCOSE, URINE NEGATIVE (Neg); KETONES,URINE NEGATIVE (Neg); LEUKOCYTE ESTERASE ,URINE NEGATIVE (Neg); NITRITES, URINE NEGATIVE (Neg); OCCULT BLOOD,URINE NEGATIVE (Neg); PH,URINE 5.5 (4.8-8.0); PROTEIN,URINE NEGATIVE (Neg); UA COLLECTION TYPE CLN CATCH MIDSTREAM; UROBILINOGEN,URINE 0.2 E.U/dL (0.2-1.0)
[2017-09-08 12:08] LABS: URINE AMPHETAMINE SCREEN NEGATIVE (Neg); URINE BARBITUATE SCREEN NEGATIVE (Neg); URINE BENZODIAZEPINES SCREEN NEGATIVE (Neg); URINE CANNABINOID SCREEN POSITIVE (Neg); URINE COCAINE SCREEN NEGATIVE (Neg); URINE METHADONE SCREEN NEGATIVE (Neg); URINE OPIATE SCREEN NEGATIVE (Neg); URINE PHENCYCLIDINE SCREEN NEGATIVE (Neg)
[2017-09-08 12:12] LABS: ALANINE AMINOTRANSFERASE 49 U/L (12-78); ALBUMIN 3.7 G/DL (3.4-5.0); ALBUMIN/GLOBULIN RATIO 0.9 (1.1-1.5); ALKALINE PHOSPHATASE 120 IU/L (46-116); ANION GAP 11 (8-16); ASPARTATE AMINO TRANSFERASE 48 U/L (10-37); BILIRUBIN,TOTAL 0.3 MG/DL (0.1-1.0); BLOOD UREA NITROGEN 14 MG/DL (7-18); BUN/CREATININE RATIO 16.9 (6.6-38.0); CALCIUM 8.3 MG/DL (8.5-10.1); CHLORIDE 109 MMOL/L (99-107); CREATININE 0.83 MG/DL (0.40-0.90); GLUCOSE 102 MG/DL (70-104); POTASSIUM 4.1 MMOL/L (3.5-5.1); SODIUM 142 MMOL/L (135-145); TOTAL CARBON DIOXIDE 21.8 MMOL/L (24-32); eGFR 71 ML/MIN
[2017-09-08 12:15] LABS: SQUAMOUS EPITHELIAL CELL,UR FEW /LPF (FEW)
[2017-09-08 12:16] LABS: BACTERIA,URINE 2+ /HPF (Neg); MUCUS STRANDS NONE SEEN /LPF (Neg); RBC,URINE 0-2 /HPF (0-2); WBC,URINE 0-4 /HPF (0-4)
[2017-09-08 12:19] LABS: ETHANOL 0.241 GM/DL (0.0-0.010)
[2017-09-08 12:58] LABS: AMYLASE 39 U/L (25-115); LIPASE 113 U/L (73-393)
[2017-09-08] MEDS: acetaminophen 325mg tablet PO PRN (14:47)
[2017-09-08] MEDS ORDERED: acetaminophen 325mg tablet PO PRN (15:55)
[2017-09-08] MEDS ORDERED: ibuprofen tablet 400 MG TABLET PO ONE (16:35)
[2017-09-08] MEDS ORDERED: ibuprofen tablet 400 MG TABLET PO PRN (16:35)
[2017-09-08] MEDS: LORazepam 2 mg/ml vial IM PRN (19:39)
[2017-09-08] MEDS ORDERED: ondansetron 4mg rapidly disintigrating tab PO ONE (22:25)
[2017-09-09] MEDS: acetaminophen 325mg tablet PO PRN (04:03)
[2017-09-09] MEDS ORDERED: ondansetron 4mg rapidly disintigrating tab PO PRN (05:50)
[2017-09-09] MEDS: LORazepam 2 mg/ml vial IM PRN (06:06)
[2017-09-09] MEDS ORDERED: chlordiazePOXIDE 25mg capsule PO ONE (11:55)
[2017-09-09] MEDS ORDERED: CHLO25CA10 PO (11:55)
[2017-09-09 12:15] VITALS: BP 132/79
== END 2017-09-09 12:17 | disposition home or self-care (01) ==
LOC: ER 11:19
DX: F20.9 Schizophrenia, unspecified (principal); F31.9 Bipolar disorder, unspecified; R45.851 Suicidal ideations; F10.129 Alcohol abuse with intoxication, unspecified; G89.29 Other chronic pain; Z90.49 Acquired absence of other specified parts of digestive tract; Z88.8 Allergy status to other drugs, medicaments and biological substances; Z79.899 Other long term (current) drug therapy
CPT/HCPCS: 36415; 80053; 80305; 80320; 80329; 81001; 81025; 82150; 83690; 84443; 85025; 96372; 99284; J2060

== ENCOUNTER 2018-02-22 08:53 | Emergency (ER) | payer MEDICARE, MEDICAID ==
[~2018-02-22] VITALS: Ht 170.2 cm; Wt 70.0 kg
[~2018-02-22 08:53] MED LIST changes: +CHLO25CA10 PO
[2018-02-22 09:56] LABS: BASOPHILS # (AUTO) 0.1 X10'3 (0-0.2); BASOPHILS % (AUTO) 0.9 % (0-1); EOSINOPHILS # (AUTO) 0.2 X10'3 (0-0.9); EOSINOPHILS % (AUTO) 2.4 % (0-6); HEMATOCRIT 41.9 % (35.0-45.0); HEMOGLOBIN 14.1 g/dl (12.0-16.0); LYMPHOCYTES # (AUTO) 2.8 X10'3 (1.1-4.8); LYMPHOCYTES % (AUTO) 30.9 % (21-51); MEAN CORPUSCULAR HEMOGLOBIN 29.7 PG (27.0-31.0); MEAN CORPUSCULAR HGB CONC 33.6 % (33.0-36.5); MEAN CORPUSCULAR VOLUME 88.3 FL (78-98); MEAN PLATELET VOLUME 10.3 FL (7.4-10.4); MONOCYTES # (AUTO) 0.7 X10'3 (0-0.9); MONOCYTES % (AUTO) 8.2 % (2-12); NEUTROPHILS # (AUTO) 5.2 X10'3 (1.8-7.7); NEUTROPHILS % (AUTO) 57.6 % (42-75); PLATELET COUNT 216 X10'3 (140-440); RED BLOOD COUNT 4.75 X10'6 (4.20-5.60); RED CELL DISTRIBUTION WIDTH 15.4 % (11.5-14.5)
[2018-02-22] MEDS ORDERED: ONDA4TAB6 PO (09:57)
[2018-02-22] MEDS ORDERED: gabapentin 400mg capsule PO STA (10:01)
[2018-02-22] MEDS ORDERED: ondansetron 4mg rapidly disintigrating tab PO ONE (10:05)
[2018-02-22] MEDS ORDERED: gabapentin 300mg capsule PO STA (10:11)
[2018-02-22 10:18] LABS: ALANINE AMINOTRANSFERASE 28 U/L (12-78); ALBUMIN 3.4 G/DL (3.4-5.0); ALBUMIN/GLOBULIN RATIO 0.9 (1.1-1.5); ALKALINE PHOSPHATASE 88 IU/L (46-116); ANION GAP 8 (8-16); ASPARTATE AMINO TRANSFERASE 21 U/L (10-37); BILIRUBIN,TOTAL 0.5 MG/DL (0.1-1.0); BLOOD UREA NITROGEN 8 MG/DL (7-18); BUN/CREATININE RATIO 9.2 (6.6-38.0); CALCIUM 8.4 MG/DL (8.5-10.1); CHLORIDE 106 MMOL/L (99-107); CREATININE 0.87 MG/DL (0.40-0.90); GLUCOSE 97 MG/DL (70-104); LIPASE 144 U/L (73-393); POTASSIUM 4.2 MMOL/L (3.5-5.1); SODIUM 139 MMOL/L (135-145); TOTAL CARBON DIOXIDE 24.9 MMOL/L (24-32); eGFR 67 ML/MIN
[2018-02-22 10:24] VITALS: BP 135/60
== END 2018-02-22 10:37 | disposition home or self-care (01) ==
LOC: ER 08:53
DX: R10.12 Left upper quadrant pain (principal); R10.33 Periumbilical pain; R11.2 Nausea with vomiting, unspecified; R42 Dizziness and giddiness; F17.200 Nicotine dependence, unspecified, uncomplicated; R19.7 Diarrhea, unspecified; G89.29 Other chronic pain; Z90.49 Acquired absence of other specified parts of digestive tract; Z88.8 Allergy status to other drugs, medicaments and biological substances; Z79.899 Other long term (current) drug therapy
CPT/HCPCS: 36415; 80053; 83690; 85025; 99284

== ENCOUNTER 2018-07-16 11:11 | Inpatient (IN) | payer MEDICARE, MEDICAID ==
[~2018-07-16] VITALS: Ht 170.2 cm; Wt 74.4 kg
[~2018-07-16 11:11] MED LIST changes: +ATI0.5T PO; -CHLO25CA10 PO; +LAMO100T40 PO; -LAMO25TA72 PO; -LORA0.5T PO; -LURA120T PO; -NICO2GUM29 BC; +PALI3TAB PO; -PALI3TAB5 PO; -PANT40TA4 PO; -PROP20TA6 PO
[2018-07-16] MEDS ORDERED: ONDA4TAB6 PO (11:58)
[2018-07-16] MEDS ORDERED: acetaminophen 325mg tablet PO PRN ×4 (12:05→16:20)
[2018-07-16] MEDS ORDERED: mag hydrox/Alum hydrox/simeth 30ml oral suspension PO PRN ×2 (12:05→16:20)
[2018-07-16] MEDS ORDERED: magnesium hydroxide 30ml (MOM) UD suspension PO PRN ×2 (12:05→16:20)
[2018-07-16] MEDS ORDERED: tuberculin, purif. prot. deriv. 5 units/0.1ml ID ONE (12:05)
--- NOTE | 2018-07-16 12:20 | NUR ---
Admit Note: Pt was picked up by EMS after having been interviewed by the mental health crisis unit on 07/14/18. Patient with a history of significant mental health related problems including bipolar disease with a past history of psychosis. Patient has a significant past medical history for IV drug abuse including methamphetamine but denies recent use as well as denies ETOH use, BAL 0.141 on admit. Patient was unable to give a significant history in ER so history was obtained by EMS. On admit to ED pt "speaking gibberish with rapid speech which was nonsensical." Pt had been prescribed Prozac however she had previously felt like it was making her more suicidal and subsequently she stopped taking it. Pt brought onto the unit by and JESÚS Bansal. Pt reports she does not know how she got to ER. She reports she last drank August of last year, "had a beer yesterday." Admission completed. Inventory completed by JESÚS Bansal. Pt attended PM group. Pt given Ativan 1mg, HR 108 unable to sit still bouncing her leg up and down. VS BP 121/73, HR 108, RR 16, T 98.7 pain 9/10 "stomach" she wanted the Ativan and nothing at this time.
[2018-07-16] MEDS ORDERED: HYDR-3686 PO (12:41)
[2018-07-16] MEDS ORDERED: LIPA1CAP21 PO (12:41)
[2018-07-16] MEDS ORDERED: PALI6TAB PO (12:41)
[2018-07-16] MEDS ORDERED: PREG150C PO (12:41)
[2018-07-16] MEDS ORDERED: DIPH50CA37 PO (12:41)
[2018-07-16] MEDS ORDERED: NORT10CA5 PO (12:41)
[2018-07-16] MEDS ORDERED: LORA1TAB PO (12:41)
[2018-07-16] MEDS ORDERED: BUDE10.22 INH (12:41)
[2018-07-16] MEDS ORDERED: DICY10CA88 PO (12:41)
[2018-07-16] MEDS ORDERED: LORazepam 1 MG tablet PO ONE ×2 (12:45→15:55)
[2018-07-16] MEDS ORDERED: hydrOXYzine 25 MG tablet PO PRN (14:00)
[2018-07-16] MEDS ORDERED: non-formulary drug (Ondansetron Hcl (Zofran) 1 TAB) PO PRN (14:00)
[2018-07-16] MEDS ORDERED: LORazepam 1 MG tablet PO PRN (14:00)
[2018-07-16] MEDS ORDERED: dicyclomine 10 MG capsule PO PRN (14:00)
[2018-07-16] MEDS ORDERED: ondansetron 4mg rapidly disintigrating tab PO PRN (14:20)
--- NOTE | 2018-07-16 14:26 | NUR ---
Poor PO intake and refusal of meals for two days. Spoke with bedside RN regarding pt preferences, RN reports pt wants a bland diet to prevent abdominal pain, has h/o pancreatitis. D/w dietary to not send sauces or gravies. RN requested high protein shakes, recommend Ensure Enlive for meal replacement. Addendum: 07/16/18 at [address] Amended: Links added.
[2018-07-16] MEDS ORDERED: albuterol 2.5 MG/3 ML nebule NEB SCH (15:00)
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
--- NOTE | 2018-07-16 15:40 | NUR ---
Pt discharged from unit and transferred to PCU 3015 B. EKG: SVT's VS BP 143/97, HR 188, RR 16,O2 99% T 97.9 Dr. Meyers called Ativan 2mg given[address] Bae paged and met pt on PCU
--- NOTE | 2018-07-16 16:00 | NUR ---
Pt come to PCU unit with HR 190 on the monitor with rapid respond team. Dr Bae at the [facility] site SVT resolved with carotid massage cont on monitor Jessica MARTINEZ
[2018-07-16] MEDS ORDERED: HYDROcodone/acetaminophen 5mg/325mg tablet PO PRN (16:20)
[2018-07-16] MEDS ORDERED: ondansetron/PF 4mg/2ml inj IV PRN (16:20)
[2018-07-16] MEDS ORDERED: morphine 4 MG/ML inj SYRINge IV PRN ×2 (16:20)
--- NOTE | 2018-07-16 16:24 | NUR ---
Tally of HR from 1220 - 1540 1510 HR 188 1534 HR 199 1540 HR 195 Pt D/C'd to [facility] [id number]
[2018-07-16] MEDS ORDERED: ZENPEP 40000 UNIT PO SCH (17:00)
[2018-07-16] MEDS ORDERED: LIPASE PO SCH (17:00)
[2018-07-16] MEDS ORDERED: PROTEASE PO SCH (17:00)
[2018-07-16] MEDS ORDERED: AMYLASE PO SCH (17:00)
[2018-07-16 17:02] LABS: BASOPHILS # (AUTO) 0.1 X10'3 (0-0.2); BASOPHILS % (AUTO) 0.9 % (0-1); EOSINOPHILS # (AUTO) 0.1 X10'3 (0-0.9); EOSINOPHILS % (AUTO) 0.6 % (0-6); HEMATOCRIT 49.1 % (35.0-45.0); HEMOGLOBIN 16.4 g/dl (12.0-16.0); LYMPHOCYTES % (AUTO) 32.8 % (21-51); MEAN CORPUSCULAR HEMOGLOBIN 29.7 PG (27.0-31.0); MEAN CORPUSCULAR HGB CONC 33.4 g/dL (33.0-36.5); MEAN CORPUSCULAR VOLUME 88.9 FL (78-98); MEAN PLATELET VOLUME 9.5 FL (7.4-10.4); MONOCYTES # (AUTO) 0.7 X10'3 (0-0.9); NEUTROPHILS # (AUTO) 5.3 X10'3 (1.8-7.7); NEUTROPHILS % (AUTO) 57.7 % (42-75); PLATELET COUNT 167 X10'3 (140-440); RED BLOOD COUNT 5.52 X10'6 (4.20-5.60); RED CELL DISTRIBUTION WIDTH 14.9 % (11.5-14.5); WHITE BLOOD COUNT 9.2 X10'3 (4.5-11.0)
[2018-07-16 17:30] LABS: ALANINE AMINOTRANSFERASE 37 U/L (12-78); ALBUMIN 3.6 G/DL (3.4-5.0); ALBUMIN/GLOBULIN RATIO 0.9 (1.1-1.5); ALKALINE PHOSPHATASE 98 IU/L (46-116); ANION GAP 16 (8-16); ASPARTATE AMINO TRANSFERASE 35 U/L (10-37); BLOOD UREA NITROGEN 21 MG/DL (7-18); BUN/CREATININE RATIO 20.8 (6.6-38.0); CALCIUM 9.2 MG/DL (8.5-10.1); CHLORIDE 105 MMOL/L (99-107); CREATININE 1.01 MG/DL (0.40-0.90); GLUCOSE 76 MG/DL (70-104); MAGNESIUM 1.7 MG/DL (1.5-2.4); PHOSPHORUS 3.5 MG/DL (2.3-4.5); POTASSIUM 3.8 MMOL/L (3.5-5.1); SODIUM 141 MMOL/L (135-145); TOTAL CARBON DIOXIDE 20.4 MMOL/L (24-32); TOTAL PROTEIN 7.6 G/DL (6.4-8.2); TROPONIN I 0.09 NG/ML (0.0-0.05); eGFR 56 ML/MIN
--- NOTE | 2018-07-16 17:33 | NUR ---
Pt addmited to phyc unit today @12:30 with 5150 cod. What code status she have on PCU Dr call back pt need siter Ivett Lopez RN
--- NOTE | 2018-07-16 18:05 | NUR ---
report given to kyaw Lopez RN
--- NOTE | 2018-07-16 18:30 | NUR ---
Problems reprioritized. Patient report given, questions answered & plan of care reviewed with MICHELLE Lopez.
[2018-07-16 19:00] VITALS: BP 104/58
[2018-07-16] MEDS ORDERED: pregabalin 75mg capsule PO SCH (20:00)
[2018-07-16] MEDS ORDERED: diphenhydrAMINE 25mg capsule PO SCH (20:00)
[2018-07-16] MEDS ORDERED: non-formulary drug (Pregabalin (Lyrica) 1 CAP) PO SCH (20:00)
[2018-07-16] MEDS ORDERED: DIPHENHYDRAMINE HCL PO SCH (20:00)
[2018-07-16] MEDS ORDERED: lamoTRIgine 100mg tablet PO SCH (21:00)
[2018-07-16] MEDS ORDERED: BUDESONIDE 0.25 MG/2 ML AMPUL.NEB IH SCH (21:00)
[2018-07-17] MEDS ORDERED: non-formulary drug (Budesonide/Formoterol Fumarate (Symbicort 80-4.5 Mcg Inhaler) 2 PUFFS) INH SCH (08:00)
[2018-07-17] MEDS ORDERED: PALIPERIDONE 3 MG TAB.ER.24 PO SCH (08:00)
== END 2018-07-16 16:09 | disposition short-term general hospital (02) | DRG 881 ==
LOC: ADULT MH 11:49 → PCU 3S 16:00 → ADULT MH 16:00 → UNDODISIN 16:20
PROVIDERS: ADMIT Psychiatry & Neurology Psychiatry; ATTEND Psychiatry & Neurology Psychiatry
DX: F32.9 Major depressive disorder, single episode, unspecified (principal); I47.1 Supraventricular tachycardia; F17.210 Nicotine dependence, cigarettes, uncomplicated; J44.9 Chronic obstructive pulmonary disease, unspecified; Z90.49 Acquired absence of other specified parts of digestive tract; Z88.8 Allergy status to other drugs, medicaments and biological substances
CPT/HCPCS: 36415; 71045; 80053; 83735; 83880; 84100; 84484; 85025; 87070; 93306; 94760; 99285; Q0163

== ENCOUNTER 2018-07-16 16:25 | Inpatient (IN) | payer MEDICARE, MEDICAID ==
[~2018-07-16] VITALS: Ht 170.2 cm; Wt 73.7 kg
[~2018-07-16 16:25] MED LIST changes: +BUDE10.22 INH; +DICY10CA88 PO; +DIPH50CA37 PO; +HYDR-3686 PO; +LIPA1CAP21 PO; +LORA1TAB PO; +NORT10CA5 PO; +ONDA4TAB6 PO; +PALI6TAB PO; +PREG150C PO
[2018-07-16 19:00] VITALS: BP 104/58
[2018-07-16] MEDS ORDERED: PALIPERIDONE 3 MG TAB.ER.24 PO SCH (21:00)
[2018-07-16] MEDS ORDERED: ondansetron 4mg rapidly disintigrating tab PO PRN (21:10)
[2018-07-16] MEDS ORDERED: LORazepam 1 MG tablet PO PRN (21:10)
[2018-07-16] MEDS ORDERED: dicyclomine 10 MG capsule PO PRN (21:10)
[2018-07-16 23:00] VITALS: BP 112/66
[2018-07-17] MEDS: albuterol 2.5 MG/3 ML nebule NEB SCH ×4 (02:32→20:35)
[2018-07-17 03:00] VITALS: BP 116/65
[2018-07-17 04:41] LABS: BASOPHILS # (AUTO) 0.1 X10'3 (0-0.2); BASOPHILS % (AUTO) 0.6 % (0-1); EOSINOPHILS # (AUTO) 0.1 X10'3 (0-0.9); EOSINOPHILS % (AUTO) 1.4 % (0-6); HEMATOCRIT 48.3 % (35.0-45.0); HEMOGLOBIN 16.7 g/dl (12.0-16.0); LYMPHOCYTES # (AUTO) 2.9 X10'3 (1.1-4.8); LYMPHOCYTES % (AUTO) 31.9 % (21-51); MEAN CORPUSCULAR HEMOGLOBIN 30.5 PG (27.0-31.0); MEAN CORPUSCULAR HGB CONC 34.5 g/dL (33.0-36.5); MEAN CORPUSCULAR VOLUME 88.3 FL (78-98); MEAN PLATELET VOLUME 9.5 FL (7.4-10.4); MONOCYTES # (AUTO) 0.9 X10'3 (0-0.9); MONOCYTES % (AUTO) 9.7 % (2-12); NEUTROPHILS # (AUTO) 5.2 X10'3 (1.8-7.7); NEUTROPHILS % (AUTO) 56.4 % (42-75); PLATELET COUNT 181 X10'3 (140-440); RED BLOOD COUNT 5.47 X10'6 (4.20-5.60); RED CELL DISTRIBUTION WIDTH 15.1 % (11.5-14.5); WHITE BLOOD COUNT 9.2 X10'3 (4.5-11.0)
[2018-07-17 05:02] LABS: ALANINE AMINOTRANSFERASE 47 U/L (12-78); ALBUMIN 3.5 G/DL (3.4-5.0); ALBUMIN/GLOBULIN RATIO 0.9 (1.1-1.5); ALKALINE PHOSPHATASE 93 IU/L (46-116); ANION GAP 16 (8-16); BILIRUBIN,TOTAL 1.1 MG/DL (0.1-1.0); BLOOD UREA NITROGEN 21 MG/DL (7-18); BUN/CREATININE RATIO 26.3 (6.6-38.0); CHLORIDE 105 MMOL/L (99-107); GLUCOSE 69 MG/DL (70-104); SODIUM 140 MMOL/L (135-145); TOTAL CARBON DIOXIDE 19.4 MMOL/L (24-32); TOTAL PROTEIN 7.5 G/DL (6.4-8.2); eGFR 74 ML/MIN
[2018-07-17 05:03] LABS: ASPARTATE AMINO TRANSFERASE 50 U/L (10-37); POTASSIUM 4.2 MMOL/L (3.5-5.1)
--- NOTE | 2018-07-17 06:16 | NUR ---
Problems reprioritized. Patient report given, questions answered & plan of care reviewed with MICHELLE Montgomery.
[2018-07-17 07:00] VITALS: BP 119/64
[2018-07-17] MEDS: lipase/protease/amylase 20,000 unit capsule.DR PO SCH ×3 (07:00→17:00)
[2018-07-17] MEDS ORDERED: non-formulary drug (Budesonide/Formoterol Fumarate (Symbicort 80-4.5 Mcg Inhaler) 2 PUFFS) INH SCH (08:00)
[2018-07-17] MEDS ORDERED: pregabalin 75mg capsule PO SCH (08:00)
[2018-07-17] MEDS: lactose-reduced food (Ensure High Protein) 237ml bottle PO SCH ×3 (08:00→17:58)
[2018-07-17] MEDS ORDERED: lamoTRIgine 100mg tablet PO SCH (08:00)
[2018-07-17] MEDS ORDERED: PALIPERIDONE 3 MG TAB.ER.24 PO SCH (08:00)
[2018-07-17] MEDS ORDERED: nortriptyline 10mg capsule PO SCH ×2 (08:00→21:00)
[2018-07-17] MEDS ORDERED: diphenhydrAMINE 25mg capsule PO SCH (08:00)
[2018-07-17] MEDS: BUDESONIDE 0.25 MG/2 ML AMPUL.NEB IH SCH ×2 (08:51→20:35)
[2018-07-17 11:00] VITALS: BP 122/63
--- NOTE | 2018-07-17 11:25 | NUR ---
PAGER ID: [phone] MESSAGE: Room 3015B [place]. Pt requesting nicotine patch. Valentina [phone]
--- NOTE | 2018-07-17 14:08 | NUR ---
PAGER ID: [phone] MESSAGE: Room 3015B Ness. valentin from child protective services social worker stating need order for 9 and pt medically cleared
[2018-07-17 15:00] VITALS: BP 130/107
[2018-07-17 17:45] VITALS: BP 108/56
--- NOTE | 2018-07-17 18:10 | NUR ---
Problems reprioritized. Patient report given, questions answered & plan of care reviewed with robbin MARTINEZ. greeted patient at change of shift
[2018-07-17 19:00] VITALS: BP 108/56
--- NOTE | 2018-07-17 19:00 | NUR ---
Noah from [facility] in room evaluating patient for discharge plans. Addendum: 07/17/18 at 2009 by Carolina Correa RN Patient cleared for discharge home, Dr. Bae notified.
--- NOTE | 2018-07-17 20:15 | NUR ---
Patient discharged. Discharge paperwork discussed with patient, IV taken out with cannula intact, mobile monitor removed, home meds brought up from pharmacy and slip for belongings in safe given to patient. All belongings on person and left with boyfriend.
== END 2018-07-17 20:15 | disposition home or self-care (01) | DRG 310 ==
LOC: PCU 3S 16:25
PROVIDERS: ADMIT Internal Medicine; ATTEND Internal Medicine
DX: I47.1 Supraventricular tachycardia (principal); J44.9 Chronic obstructive pulmonary disease, unspecified; F32.9 Major depressive disorder, single episode, unspecified; Z79.899 Other long term (current) drug therapy
CPT/HCPCS: 36415; 80053; 85025; 93005; 94760; G0378; Q0163

== ENCOUNTER 2018-07-29 15:52 | Emergency (ER) | payer MEDICARE, MEDICAID ==
[~2018-07-29] VITALS: Ht 170.2 cm; Wt 157.0 kg
[~2018-07-29 15:52] MED LIST changes: -ATI0.5T PO; -PALI3TAB PO
[2018-07-29 16:52] LABS: BASOPHILS # (AUTO) 0.1 X10'3 (0-0.2); EOSINOPHILS # (AUTO) 0.1 X10'3 (0-0.9); EOSINOPHILS % (AUTO) 1.3 % (0-6); HEMATOCRIT 41.1 % (35.0-45.0); HEMOGLOBIN 14.1 g/dl (12.0-16.0); LYMPHOCYTES # (AUTO) 3.3 X10'3 (1.1-4.8); MEAN CORPUSCULAR HEMOGLOBIN 29.8 PG (27.0-31.0); MEAN CORPUSCULAR HGB CONC 34.2 g/dL (33.0-36.5); MEAN CORPUSCULAR VOLUME 87.1 FL (78-98); MEAN PLATELET VOLUME 9.2 FL (7.4-10.4); MONOCYTES # (AUTO) 0.7 X10'3 (0-0.9); MONOCYTES % (AUTO) 8.2 % (2-12); NEUTROPHILS # (AUTO) 3.9 X10'3 (1.8-7.7); NEUTROPHILS % (AUTO) 48.5 % (42-75); PLATELET COUNT 182 X10'3 (140-440); RED BLOOD COUNT 4.72 X10'6 (4.20-5.60); RED CELL DISTRIBUTION WIDTH 14.3 % (11.5-14.5); WHITE BLOOD COUNT 7.9 X10'3 (4.5-11.0)
[2018-07-29] MEDS ORDERED: LORazepam 1 MG tablet PO ONE (17:00)
[2018-07-29 17:03] LABS: ALANINE AMINOTRANSFERASE 36 U/L (12-78); ALBUMIN 3.6 G/DL (3.4-5.0); ALKALINE PHOSPHATASE 106 IU/L (46-116); ANION GAP 13 (8-16); ASPARTATE AMINO TRANSFERASE 40 U/L (10-37); BILIRUBIN,TOTAL 0.5 MG/DL (0.1-1.0); BLOOD UREA NITROGEN 10 MG/DL (7-18); BUN/CREATININE RATIO 11.6 (6.6-38.0); CALCIUM 8.5 MG/DL (8.5-10.1); CHLORIDE 109 MMOL/L (99-107); CREATININE 0.86 MG/DL (0.40-0.90); ETHANOL 0.236 GM/DL (0.0-0.010); GLUCOSE 90 MG/DL (70-104); LIPASE 167 U/L (73-393); POTASSIUM 3.5 MMOL/L (3.5-5.1); SODIUM 145 MMOL/L (135-145); TOTAL CARBON DIOXIDE 22.8 MMOL/L (24-32); TOTAL PROTEIN 7.2 G/DL (6.4-8.2); eGFR 68 ML/MIN
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
[2018-07-29] MEDS ORDERED: PREG300C PO (19:38)
--- NOTE | 2018-07-29 20:14 | NUR ---
PT RESTING IN HALLWAY BED IN MAIN ED WITHIN SIGHT OF NURSING STATION. PT WOKE FOR ASSESSMENT. PT DENIES ANY CURRENT SI. PT COOPERATIVE WITH ASSESSMENT AND QUESTIONS. AWAITING TO SET UP TELEPSYCH FOR PT TO HAVE PRIVATE ROOM. PT REFUSED DINNER TRAY.
--- NOTE | 2018-07-29 21:33 | NUR ---
TELEPSYCH SET UP FOR PATIENT. PT MOVED INTO ED CLOSED ROOM.
--- NOTE | 2018-07-30 00:17 | NUR ---
Patient continues to sleep comfortably in a supine position and is in no distress.
--- NOTE | 2018-07-30 02:28 | NUR ---
Telepsych completed. SOC recommendations to be faxed over. Patient was up to restroom and voided prior to providing a urine specimen.
[2018-07-30] MEDS: LORazepam 1 MG tablet PO PRN ×3 (03:40→19:32)
--- NOTE | 2018-07-30 06:35 | NUR ---
Patient moved from main to ED Overflow bed 22. Patient ambulatory, steady gait.
[2018-07-30] MEDS ORDERED: lamoTRIgine 25mg tablet PO SCH (08:00)
[2018-07-30 08:03] LABS: URINE HCG NEGATIVE (NEG)
[2018-07-30 08:05] LABS: CLARITY,URINE CLEAR (Clear); COLOR,URINE YELLOW (Yellow); GLUCOSE, URINE NEGATIVE (Neg); KETONES,URINE 40 mg/dl (Neg); LEUKOCYTE ESTERASE ,URINE NEGATIVE (Neg); NITRITES, URINE NEGATIVE (Neg); OCCULT BLOOD,URINE NEGATIVE (Neg); PH,URINE 5.5 (4.8-8.0); PROTEIN,URINE NEGATIVE (Neg); UROBILINOGEN,URINE 0.2 E.U/dL (0.2-1.0)
[2018-07-30 08:09] LABS: UA COLLECTION TYPE CLN CATCH MIDSTREAM
[2018-07-30 08:19] LABS: URINE AMPHETAMINE SCREEN POSITIVE (Neg); URINE BARBITUATE SCREEN NEGATIVE (Neg); URINE BENZODIAZEPINES SCREEN NEGATIVE (Neg); URINE CANNABINOID SCREEN POSITIVE (Neg); URINE COCAINE SCREEN NEGATIVE (Neg); URINE METHADONE SCREEN NEGATIVE (Neg); URINE OPIATE SCREEN NEGATIVE (Neg); URINE PHENCYCLIDINE SCREEN NEGATIVE (Neg)
[2018-07-30] MEDS ORDERED: acetaminophen 325mg tablet PO ONE (08:20)
[2018-07-30] MEDS ORDERED: ondansetron 4mg rapidly disintigrating tab PO ONE (08:20)
--- NOTE | 2018-07-30 08:25 | NUR ---
Dr Varela evaluating patient for abd pain and nausea. Continue to monitor.
[2018-07-30] MEDS: risperiDONE 0.5mg tablet PO SCH ×2 (08:39→19:32)
--- NOTE | 2018-07-30 10:30 | NUR ---
Patient sleeping supine. No restlessness observed. Continue to monitor.
--- NOTE | 2018-07-30 13:16 | NUR ---
RELIEVING RN FOR LUNCH, PT C/O FEELING ANXIOUS, MEDICATED PER ORDER, PT IS RESTING QUIETLY ON BED, RESP EVEN AND UNLABORED
--- NOTE | 2018-07-30 14:43 | NUR ---
Patient refused both breakfast and lunch. Patient states she is no longer having nausea but doesn't feel like eating. Patient states her stomach feels strange. Continue to monitor.
[2018-07-30 18:05] VITALS: BP 109/64
--- NOTE | 2018-07-30 18:38 | NUR ---
Recieved pt report from Funmilayo Vilchis. pt resting comfortably in bed. Refused dinner. Encouraged her to eat. Will continue to monitor.
--- NOTE | 2018-07-30 20:00 | NUR ---
Assessed pt, gave a dose of ativan and pt's risperidone. Pt stated she wants to go home.
--- NOTE | 2018-07-30 21:57 | NUR ---
Pt's social worker psychiatric came to reevaluate, he decided that the patient is able to go home. Awaiting a taxi to transport pt home.
== END 2018-07-30 22:24 | disposition home or self-care (01) ==
LOC: ER 15:52
DX: F31.9 Bipolar disorder, unspecified (principal); F10.929 Alcohol use, unspecified with intoxication, unspecified; G89.29 Other chronic pain; F20.9 Schizophrenia, unspecified; Z90.49 Acquired absence of other specified parts of digestive tract; Z88.8 Allergy status to other drugs, medicaments and biological substances
CPT/HCPCS: 36415; 80053; 80305; 80320; 81003; 81025; 83690; 85025; 99285

== ENCOUNTER 2019-03-08 18:20 | Emergency (ER) | payer MEDICARE, MEDICAID ==
[~2019-03-08] VITALS: Ht 170.2 cm; Wt 90.0 kg
[~2019-03-08 18:20] MED LIST changes: -BUDE10.22 INH; -DIPH50CA37 PO; -HYDR-3686 PO; -LIPA1CAP21 PO; -NORT10CA5 PO; -PREG150C PO; +PREG300C PO
[2019-03-08] MEDS ORDERED: LORazepam 2 mg/ml vial IM ONE (18:40)
[2019-03-08] MEDS ORDERED: haloperidol lactate 5mg/ml inj IM ONE (18:40)
[2019-03-08] MEDS ORDERED: diphenhydrAMINE 50 mg/ml inj IM ONE (18:40)
[2019-03-08 19:21] LABS: BASOPHILS # (AUTO) 0.1 X10'3 (0-0.2); BASOPHILS % (AUTO) 0.7 % (0-1); EOSINOPHILS # (AUTO) 0.4 X10'3 (0-0.9); EOSINOPHILS % (AUTO) 3.1 % (0-6); HEMATOCRIT 41.4 % (35.0-45.0); LYMPHOCYTES # (AUTO) 5.1 X10'3 (1.1-4.8); MEAN CORPUSCULAR HEMOGLOBIN 31.6 PG (27.0-31.0); MEAN CORPUSCULAR HGB CONC 33.9 g/dL (33.0-36.5); MEAN CORPUSCULAR VOLUME 93.5 FL (78-98); MEAN PLATELET VOLUME 8.9 FL (7.4-10.4); MONOCYTES % (AUTO) 7.6 % (2-12); NEUTROPHILS # (AUTO) 6.5 X10'3 (1.8-7.7); NEUTROPHILS % (AUTO) 49.6 % (42-75); PLATELET COUNT 224 X10'3 (140-440); RED BLOOD COUNT 4.43 X10'6 (4.20-5.60); RED CELL DISTRIBUTION WIDTH 13.9 % (11.5-14.5); WHITE BLOOD COUNT 13.1 X10'3 (4.5-11.0)
[2019-03-08 19:43] LABS: ALANINE AMINOTRANSFERASE 20 U/L (12-78); ALBUMIN 3.6 G/DL (3.4-5.0); ALBUMIN/GLOBULIN RATIO 0.9 (1.1-1.5); ALKALINE PHOSPHATASE 92 IU/L (46-116); ANION GAP 10 (8-16); ASPARTATE AMINO TRANSFERASE 22 U/L (10-37); BILIRUBIN,TOTAL 0.2 MG/DL (0.1-1.0); BLOOD UREA NITROGEN 13 MG/DL (7-18); BUN/CREATININE RATIO 14.6 (6.6-38.0); CALCIUM 8.8 MG/DL (8.5-10.1); CHLORIDE 109 MMOL/L (99-107); CREATININE 0.89 MG/DL (0.40-0.90); GLUCOSE 95 MG/DL (70-104); POTASSIUM 3.5 MMOL/L (3.5-5.1); SODIUM 145 MMOL/L (135-145); TOTAL CARBON DIOXIDE 25.6 MMOL/L (24-32); TOTAL PROTEIN 7.4 G/DL (6.4-8.2); eGFR 65 ML/MIN
[2019-03-08] MEDS ORDERED: ketamine 50 mg/ml 10ml vial IM ONE ×2 (19:45→21:20)
[2019-03-08 19:46] LABS: ETHANOL 0.238 GM/DL (0.0-0.010)
[2019-03-08] MEDS ORDERED: LORazepam 2 mg/ml vial IM PRN (20:20)
[2019-03-08] MEDS ORDERED: diphenhydrAMINE 50 mg/ml inj IM PRN (20:20)
[2019-03-08 20:53] LABS: URINE HCG NEGATIVE (NEG)
[2019-03-08 20:56] LABS: CLARITY,URINE CLEAR (Clear); COLOR,URINE STRAW (Yellow); GLUCOSE, URINE NEGATIVE (Neg); KETONES,URINE NEGATIVE (Neg); LEUKOCYTE ESTERASE ,URINE NEGATIVE (Neg); NITRITES, URINE NEGATIVE (Neg); OCCULT BLOOD,URINE SMALL (Neg); PH,URINE 6.5 (4.8-8.0); PROTEIN,URINE NEGATIVE (Neg); UROBILINOGEN,URINE 0.2 E.U/dL (0.2-1.0)
[2019-03-08 20:57] LABS: UA COLLECTION TYPE STRAIGHT CATH
[2019-03-08 21:00] LABS: URINE AMPHETAMINE SCREEN NEGATIVE (Neg); URINE BARBITUATE SCREEN NEGATIVE (Neg); URINE BENZODIAZEPINES SCREEN NEGATIVE (Neg); URINE CANNABINOID SCREEN POSITIVE (Neg); URINE COCAINE SCREEN NEGATIVE (Neg); URINE METHADONE SCREEN NEGATIVE (Neg); URINE OPIATE SCREEN NEGATIVE (Neg); URINE PHENCYCLIDINE SCREEN NEGATIVE (Neg)
[2019-03-08 21:03] LABS: BACTERIA,URINE NONE SEEN /HPF (Neg); RBC,URINE 0-2 /HPF (0-2); SQUAMOUS EPITHELIAL CELL,UR MODERATE /LPF (FEW); TRANSITIONAL EPI CELLS,URINE MODERATE /HPF; WBC,URINE 0-4 /HPF (0-4)
[2019-03-08] MEDS ORDERED: ketamine 50mg/5ml syringe IM ONE (21:30)
--- NOTE | 2019-03-09 00:30 | NUR ---
PATIENT NO LONGER IN RESTRAINTS. RESTRAINTS WERE REMOVED BY PREVIOUS NURSE
--- NOTE | 2019-03-09 00:55 | NUR ---
Assumed care received report from Rebecca MARTINEZ
--- NOTE | 2019-03-09 00:57 | NUR ---
Patient resting on right left side at this time
--- NOTE | 2019-03-09 02:59 | NUR ---
FAXED MED CLEARANCE TO [facility].
[2019-03-09 03:30] VITALS: BP 121/80
--- NOTE | 2019-03-09 03:57 | NUR ---
ESCORTED PATIENT TO RESTROOM, PATIENT AMBULATED WITHOUT ASSISTANCE. PATIENT WAS PLEASANT AND APPROPRIATE.
--- NOTE | 2019-03-09 06:00 | NUR ---
pt resting in bed
[2019-03-09] MEDS ORDERED: CLON-528 PO (07:52)
[2019-03-09] MEDS ORDERED: [UNRECOGNIZED DRUG - OTHER] PO (07:54)
[2019-03-09] MEDS ORDERED: PREG150C PO (07:55)
[2019-03-09] MEDS ORDERED: VENL150T3 PO (07:57)
[2019-03-09] MEDS ORDERED: GABA-532 PO ×2 (07:58)
--- NOTE | 2019-03-09 08:04 | NUR ---
[facility] paged for med recommendations
--- NOTE | 2019-03-09 09:00 | NUR ---
pt getting dressed for dc
== END 2019-03-09 09:38 | disposition home or self-care (01) ==
LOC: ER 18:20
DX: R45.851 Suicidal ideations (principal); F23 Brief psychotic disorder; F10.129 Alcohol abuse with intoxication, unspecified; F31.9 Bipolar disorder, unspecified; G89.29 Other chronic pain; F20.9 Schizophrenia, unspecified; Z90.49 Acquired absence of other specified parts of digestive tract; Z88.8 Allergy status to other drugs, medicaments and biological substances; Z79.899 Other long term (current) drug therapy; Y90.0 Blood alcohol level of less than 20 mg/100 ml
CPT/HCPCS: 36415; 73130; 80053; 80305; 80320; 81001; 81025; 84443; 85025; 96372; 99284; J1200; J1630; J2060; P9612